=== PATIENT | female | born 1970 | race Two or more races ===

== ENCOUNTER → 2017-05-13 | Outpatient (CLI) | payer OTHER | LOC: CIMAGING 09:19 | PROVIDERS: ATTEND Family Medicine | DX: M25.571 Pain in right ankle and joints of right foot (principal); M25.572 Pain in left ankle and joints of left foot; M25.471 Effusion, right ankle; M25.472 Effusion, left ankle; Y93.02 Activity, running | CPT/HCPCS: 73610-PO ==